=== PATIENT | male | born 1990 | race Caucasian/White ===

== ENCOUNTER → 2016-12-28 | Outpatient (CLI) | payer OTHER ==
[~2016-12-28] MED LIST: BUPR-266 PO; CNC36 PO; CYM/30 PO; FLUO40CA8 PO; GABA800T PO
--- NOTE | 2016-12-28 14:13 | DIAGNOSTIC IMAGING REPORT ---
ULTRASOUND TESTES AND SCROTUM CLINICAL HISTORY: Right testicular pain. COMPARISON STUDY: No priors. TECHNIQUE: Real-time, grayscale, and color Doppler sonography of the testes and scrotum is performed. Images are reviewed in the transverse and longitudinal planes. FINDINGS: The testes are normal in size and homogeneous in echotexture. The right testis measures 4.5 x 2.1 x 2.2 cm and the left testis measures 4.3 x 2.4 x 2.5 cm. No intratesticular mass is seen. Testicular blood flow is normal and symmetric. Normal Doppler waveforms are identified in both testes. The epididymal heads are normal in appearance. The right epididymal head measures 1.1 cm in length and the left epididymal head measures 1.1 cm in length. A 0.2 cm epididymal head cyst is noted on the left. No varicocele or hydrocele is seen. IMPRESSION: Unremarkable sonographic assessment of the testes and scrotum. Electronically signed by: Jose Hall M.D. 12/28/2016 2:11 PM Dictated Date/Time: 12/28/2016 2:10 PM
== END | disposition home or self-care (01) ==
LOC: C.ULTR 13:39
PROVIDERS: ATTEND Physician Assistant
DX: N50.811 Right testicular pain (principal)

== ENCOUNTER → 2017-05-25 | Outpatient (CLI) | payer OTHER ==
[~2017-05-25] MED LIST changes: -BUPR-266 PO; -CYM/30 PO; -GABA800T PO
== END | disposition home or self-care (01) ==
LOC: C.LAB 20:53
DX: Z02.83 Encounter for blood-alcohol and blood-drug test (principal)

== ENCOUNTER 2017-06-26 14:15 | Emergency (ER) | payer OTHER ==
[~2017-06-26] VITALS: Ht 177.8 cm; Wt 83.0 kg
[2017-06-26 14:16] VITALS: TEMP 36.5; Ht 177.8 cm; Wt 83.0 kg
[2017-06-26 14:40] VITALS: O2SAT 93
[2017-06-26] MEDS ORDERED: GABA800T PO (15:09)
[2017-06-26] MEDS ORDERED: BUPR-266 PO (15:09)
[2017-06-26] MEDS ORDERED: CYM/30 PO (15:09)
[2017-06-26 15:23] LABS: BASO % 0.3 %; BASO ABS # 0.03 K/uL (0-0.2); COMPLETE YES; EOS % 1.8 %; HEMATOCRIT 40.2 % (42-52); IG% 0.3 %; LYMPH % 18.6 %; MEAN CELL VOLUME 85.7 fL (80-100); MEAN CORPUSCULAR HEMOGLOBIN 29.9 pg (25-34); MEAN CORPUSCULAR HGB CONC 34.8 g/dl (32-36); MEAN PLATELET VOLUME 8.4 fL (7.4-10.4); MONO % 9.6 %; NEUT % 69.4 %; PLATELET COUNT 289 K/uL (130-400); RED BLOOD COUNT 4.69 M/uL (4.7-6.1); WHITE BLOOD COUNT 10.21 K/uL (4.8-10.8)
[2017-06-26 15:33] LABS: INR 1.1 (0.9-1.1); PARTIAL THROMBOPLASTIN RATIO 1.1; PROTHROMBIN TIME (PATIENT) 11.3 SECONDS (9.0-12.0)
[2017-06-26 15:43] LABS: ALT/SGPT 18 U/L (12-78); AST/SGOT 19 U/L (15-37); BLOOD UREA NITROGEN 13 mg/dl (7-18); BUN/CREATININE RATIO 11.9 (10-20); CALCIUM 9.7 mg/dl (8.5-10.1); CARBON DIOXIDE 32 mmol/L (21-32); CHLORIDE 100 mmol/L (98-107); GLUCOSE 73 mg/dl (70-99); POTASSIUM 3.9 mmol/L (3.5-5.1); SODIUM 138 mmol/L (136-145)
[2017-06-26 15:54] LABS: ALKALINE PHOSPHATASE 73 U/L (45-117); CKMB/CK RATIO 0.4 (0-3.0); THYROID STIMULATING HORMONE 0.589 uIu/ml (0.300-4.500)
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
[2017-06-26 16:55] LABS: URINE APPEARANCE CLEAR (CLEAR); URINE BILIRUBIN NEG (NEG); URINE COLOR YELLOW; URINE NITRITE NEG (NEG); URINE PH 5.5 (4.5-7.5); URINE SPECIFIC GRAVITY 1.016 (1.000-1.030); UROBILINOGEN NEG (NEG); ZZUR CULT IF INDIC CLEAN CATCH NO
[2017-06-26 16:57] LABS: MANUAL MICROSCOPIC REQUIRED? NO; REVIEW REQ? NO
[2017-06-26 17:32] LABS: BENZODIAZEPINE, URINE NEG (NEG); COCAINE,URINE POS (NEG); PHENCYCLIDINE, URINE NEG (NEG)
[2017-06-26] MEDS ORDERED: LORAZEPAM 1 MG TAB SL STA (22:21)
[2017-06-26] MEDS: GABAPENTIN 800 MG TAB PO SCH (22:42)
--- NOTE | 2017-06-27 01:23 | EMERGENCY ROOM VISIT NOTE ---
ED Visit Note This patient was initially seen by Dr. Jonny Estes and medically cleared by him. He was signed out to me pending placement at a psychiatric facility. The patient was willing to sign in voluntarily. I did speak to the psychiatric telephonic nurse case manager who stated that multiple facilities were contacted and unwilling to take the patient, some of them requesting a 24 hour observation medically because of his polysubstance abuse. When I went to evaluate the patient he was sleeping as he received Ativan and gabapentin by Dr. Estes. I did speak to the hospitalist who did not feel it was appropriate to admit him to the medical service. The patient will be evaluated by 3 S. and will require placement at a mental health facility. The telephonic nurse case manager did state that the parents of the patient did state that the patient was suicidal and they would be willing to sign a 302 if he changed his mind about voluntary admission. The patient was signed out to Dr. Trevizo.
--- NOTE | 2017-06-27 03:38 | EMERGENCY ROOM VISIT NOTE ---
ED Visit Note First contact with patient: 02:38 This patient was signed out to me awaiting acceptance at an inpatient psychiatric facility. The ED psychiatric rn field case manager contacted multiple facilities for placement and was unable to secure a bed. The patient is resting complete this time. The bed search will resume at 7 AM. The patient is willing to sign himself in voluntarily. Morning medications will be ordered. The case will be signed out to Dr. Stewart at change of shift until an inpatient psychiatric bed can be secured.
[2017-06-27] MEDS ORDERED: DULOXETINE (CYMBALTA) 30 MG CAP PO SCH (09:00)
--- NOTE | 2017-06-27 13:56 | EMERGENCY ROOM VISIT NOTE ---
ED Visit Note First contact with patient: 13:50 Patient signed out to me by Dr. Trevizo. Voluntary admission form signed. Patient to be transferred to [place] for suicide attempt with intentional overdose, suicidal ideation, hallucinations, and anxiety.
[2017-06-27] MEDS: GABAPENTIN 800 MG TAB PO SCH (14:06)
[2017-06-27 16:05] VITALS: BP 117/75; PULSE 96; O2SAT 97
== END 2017-06-27 16:06 ==
LOC: C.EDB 14:16 → C.EDA 06-27 16:06
DX: F32.9 Major depressive disorder, single episode, unspecified (principal); F19.10 Other psychoactive substance abuse, uncomplicated; R45.851 Suicidal ideations; F41.9 Anxiety disorder, unspecified; R44.3 Hallucinations, unspecified; Z91.5 Personal history of self-harm; Z90.89 Acquired absence of other organs; Z82.49 Family history of ischemic heart disease and other diseases of the circulatory system